=== PATIENT | female | born 1995 | race Hispanic/Latino ===

== ENCOUNTER 2019-11-14 13:18 | Emergency (ER) | payer SELFPAY ==
--- NOTE | 2019-11-14 13:19 | Event Note ---
ED Screening Note ED Screening Note: mis Jul 19 dizzy and weak never before preg hoshimotos disease rx mvi at night no c/e/d psh appy This initial assessment/diagnostic orders/clinical plan/treatment(s) is/are subject to change based on patients health status, clinical progression and re- assessment by fellow clinical providers in the ED. Further treatment and workup at subsequent clinical providers discretion. Patient/guardian urged not to elope from the ED as their condition may be serious if not clinically assessed and man aged. Initial orders include: ua labs
[2019-11-14 13:26] VITALS: BP 109/74
[2019-11-14 14:02] LABS: Bacteria,Urine 1+ /HPF (Negative); Bilirubin,Urine NEG (Negative); Blood,Urine NEG (Negative); Color,Urine Yellow (Yellow); Mucus,Urine FEW /HPF; Protein,Urine <15 mg/dL mg/dL (Negative); Urobilinogen,Urine < 2.0 mg/dL (<2.0)
[2019-11-14 14:27] LABS: Basophils % (Auto) 0.6 % (0.0-1.8); Eosinophils # (Auto) 0.2 K/mm3 (0.0-0.4); Eosinophils % (Auto) 2.6 % (0.0-4.3); Hematocrit 39.5 % (30.3-42.9); Hemoglobin 13.2 gm/dl (10.1-14.3); Lymphocytes # (Auto) 0.9 K/mm3 (1.2-5.4); Lymphocytes % (Auto) 13.6 % (13.4-35.0); Mean Corpuscular HGB Conc 34 % (30-34); Mean Corpuscular Volume 84 fl (79-97); Monocytes # (Auto) 0.5 K/mm3 (0.0-0.8); Monocytes % (Auto) 7.2 % (0.0-7.3); Platelet Count 218 K/mm3 (140-440); Red Blood Count 4.72 M/mm3 (3.65-5.03); Red Cell Distribution Width 14.7 % (13.2-15.2)
[2019-11-14 14:42] LABS: BUN/Creatinine Ratio 14; Blood Urea Nitrogen 7 mg/dL (7-17); Calcium 9.8 mg/dL (8.4-10.2); Hemolysis Index 8
[2019-11-14] MEDS ORDERED: SODIUM CHLORIDE 0.9% 1000 ML 1,000 ML IV ONE (16:12)
[2019-11-14] MEDS ORDERED: ONDANSETRON 4 MG/2 ML INJ IV ONE (16:14)
--- NOTE | 2019-11-14 16:14 | Emergency Department Report ---
ED HPI - General Chief complaint: Syncope Stated complaint: PREG 7 WEEKS PASSING OUT Time Seen by Provider: 11/14/19 13:19 Source: patient Mode of arrival: Ambulatory Limitations: No Limitations - History of Present Illness Initial comments: 24 yo white female comes to er with dizziness x 2 incidents over the past few days. no cp. no sob. no sinus pain. no fever or chills. no cough. no dysuria. no vag bleeding or dc. no back pain This AM she had gotten up, proceeded to make breakfast and she got dizzy. She laid down and then family brought her to ER. Pt is 7w . Has not seen obgyn yet She could not get appnt until December [id number] miscarriage in 08/07 Pt ambulatory to ER without dizziness no tachycardia; no hypotension; no fever Associated symptoms: denies other symptoms. denies: nausea/vomiting, vaginal bleeding, vaginal discharge, abdominal pain, dysuria, headache, vision changes, malaise, dysparuenia, rash, seizure, shortness of breath, syncope, weakness Vaginal bleeding: none :: Yes OB History - Current : other (ab in 08/07) Pre-aubrey care: other (appnt in December) - Related Data Previous Rx's Medication Instructions Recorded Last Taken Type Ondansetron [Zofran Odt] 4 mg PO Q8HR PRN #10 tab.rapdis 11/14/19 Unknown Rx ED Review of Systems ROS: Stated complaint: PREG 7 WEEKS PASSING OUT Other details as noted in HPI Comment: All other systems reviewed and negative ED Past Medical Hx - Past Medical History Previous Medical History?: Yes Additional medical history: Hashimotos - Surgical History Past Surgical History?: Yes Hx Appendectomy: Yes - Family History Family history: no significant - Social History Smoking Status: Never Smoker Substance Use Type: None - Medications Home Medications: Home Medications Medication Instructions Recorded Confirmed Last Taken Type Ondansetron [Zofran Odt] 4 mg PO Q8HR PRN #10 tab.rapdis 11/14/19 Unknown Rx ED Physical Exam - General Limitations: No Limitations General appearance: alert, in no apparent distress - Head Head exam: Present: atraumatic, normocephalic - Eye Eye exam: Present: normal appearance - ENT ENT exam: Present: mucous membranes moist - Neck Neck exam: Present: normal inspection - Respiratory Respiratory exam: Present: normal lung sounds bilaterally. Absent: respiratory distress - Cardiovascular Cardiovascular Exam: Present: regular rate, normal rhythm. Absent: systolic murmur, diastolic murmur, rubs, gallop - GI/Abdominal GI/Abdominal exam: Present: soft, normal bowel sounds - Extremities Exam Extremities exam: Present: normal inspection - Back Exam Back exam: Present: normal inspection - Neurological Exam Neurological exam: Present: alert, oriented X3 - Psychiatric Psychiatric exam: Present: normal affect, normal mood - Skin Skin exam: Present: warm, dry, intact, normal color. Absent: rash ED Course Vital Signs 11/14/19 13:21 Temperature 98.2 F Pulse Rate 91 H Respiratory 18 Rate Blood Pressure 109/74 O2 Sat by Pulse 100 Oximetry ED Medical Decision Making - Lab Data Result diagrams: 11/14/19 13:43 11/14/19 13:43 - Medical Decision Making Lab Results 11/14/19 11/14/19 11/14/19 Range/Units 13:43 13:43 13:43 WBC 6.8 (4.5-11.0) K/mm3 RBC 4.72 (3.65-5.03) M/mm3 Hgb 13.2 (10.1-14.3) gm/dl Hct 39.5 (30.3-42.9) % MCV 84 (79-97) fl MCH 28 (28-32) pg MCHC 34 (30-34) % RDW 14.7 (13.2-15.2) % Plt Count 218 (140-440) K/mm3 Lymph % (Auto) 13.6 (13.4-35.0) % Stanley % (Auto) 7.2 (0.0-7.3) % Eos % (Auto) 2.6 (0.0-4.3) % Baso % (Auto) 0.6 (0.0-1.8) % Lymph # 0.9 L (1.2-5.4) K/mm3 Stanley # 0.5 (0.0-0.8) K/mm3 Eos # 0.2 (0.0-0.4) K/mm3 Baso # 0.0 (0.0-0.1) K/mm3 Seg Neutrophils % 76.0 H (40.0-70.0) % Seg Neutrophils # 5.2 (1.8-7.7) K/mm3 Sodium 136 L (137-145) mmol/L Potassium 4.4 (3.6-5.0) mmol/L Chloride 101.2 (98-107) mmol/L Carbon Dioxide 25 (22-30) mmol/L Anion Gap 14 mmol/L BUN 7 (7-17) mg/dL Creatinine 0.5 L (0.7-1.2) mg/dL Estimated GFR > 60 ml/min BUN/Creatinine Ratio 14 % Glucose 80 (65-100) mg/dL POC Glucose (70-105) Calcium 9.8 (8.4-10.2) mg/dL TSH (0.270-4.200) mlU/mL HCG, Quant 74105 H (0-4) mIU/mL Urine Color (Yellow) Urine Turbidity (Clear) Urine pH (5.0-7.0) Ur Specific [place] (1.003-1.030) Urine Protein (Negative) mg/dL Urine Glucose (UA) (Negative) mg/dL Urine Ketones (Negative) mg/dL Urine Blood (Negative) Urine Nitrite (Negative) Urine Bilirubin (Negative) Urine Urobilinogen (<2.0) mg/dL Ur Leukocyte Esterase (Negative) Urine WBC (Auto) (0.0-6.0) /HPF Urine RBC (Auto) (0.0-6.0) /HPF U Epithel Cells (Auto) (0-13.0) /HPF Urine Bacteria (Auto) (Negative) /HPF Urine Mucus /HPF 11/14/19 11/14/19 11/14/19 Range/Units 13:43 13:44 15:44 WBC (4.5-11.0) K/mm3 RBC (3.65-5.03) M/mm3 Hgb (10.1-14.3) gm/dl Hct (30.3-42.9) % MCV (79-97) fl MCH (28-32) pg MCHC (30-34) % RDW (13.2-15.2) % Plt Count (140-440) K/mm3 Lymph % (Auto) (13.4-35.0) % Stanley % (Auto) (0.0-7.3) % Eos % (Auto) (0.0-4.3) % Baso % (Auto) (0.0-1.8) % Lymph # (1.2-5.4) K/mm3 Stanley # (0.0-0.8) K/mm3 Eos # (0.0-0.4) K/mm3 Baso # (0.0-0.1) K/mm3 Seg Neutrophils % (40.0-70.0) % Seg Neutrophils # (1.8-7.7) K/mm3 Sodium (137-145) mmol/L Potassium (3.6-5.0) mmol/L Chloride (98-107) mmol/L Carbon Dioxide (22-30) mmol/L Anion Gap mmol/L BUN (7-17) mg/dL Creatinine (0.7-1.2) mg/dL Estimated GFR ml/min BUN/Creatinine Ratio % Glucose (65-100) mg/dL POC Glucose 92 (70-105) Calcium (8.4-10.2) mg/dL TSH 2.830 (0.270-4.200) mlU/mL HCG, Quant (0-4) mIU/mL Urine Color Yellow (Yellow) Urine Turbidity Clear (Clear) Urine pH 5.0 (5.0-7.0) Ur Specific [place] 1.012 (1.003-1.030) Urine Protein <15 mg/dl (Negative) mg/dL Urine Glucose (UA) Neg (Negative) mg/dL Urine Ketones Neg (Negative) mg/dL Urine Blood Neg (Negative) Urine Nitrite Neg (Negative) Urine Bilirubin Neg (Negative) Urine Urobilinogen < 2.0 (<2.0) mg/dL Ur Leukocyte Esterase Tr (Negative) Urine WBC (Auto) 1.0 (0.0-6.0) /HPF Urine RBC (Auto) 3.0 (0.0-6.0) /HPF U Epithel Cells (Auto) 2.0 (0-13.0) /HPF Urine Bacteria (Auto) 1+ (Negative) /HPF Urine Mucus Few /HPF Vital Signs 11/14/19 13:21 Temperature 98.2 F Pulse Rate 91 H Respiratory 18 Rate Blood Pressure 109/74 O2 Sat by Pulse 100 Oximetry bg noted only 80 on labs- this is after dizziness at home, and coming to ER with no PO intake I'm concerned she was hypoglycemic when she developed symptoms labs noted hgb stable cr normal lytes normal tsh normal 12 lead nap taking po in er no dizziness in er ambulatory without difficulty in ER no nystagmus no vertigo on exam neuro intact medicated with zofran/NS in ER pt updated on all findings today and will dc home with dc poc and obgyn follow up. she has been monitored several hours in the er with no further symptoms. - Differential Diagnosis ro anemia/uti/thyroid disease/arrhythmia/hypoglycemia Critical care attestation.: If time is entered above; I have spent that time in minutes in the direct care of this critically ill patient, excluding procedure time. ED Disposition Clinical Impression: , Dizziness Disposition: DC-01 TO HOME OR SELFCARE Is pt being admited?: No Does the pt Need Aspirin: No Condition: Stable Additional Instructions: stay well hydrated eat small meals every 2 hours when you get dizzy stop and eat daily multivitamin zofran for nausea tylenol for pain follow up with obgy -- take this paperwork with you follow up with pcp referral below Prescriptions: Ondansetron [Zofran Odt] 4 mg PO Q8HR PRN #10 tab.rapdis PRN Reason: Vomiting Referrals: JS VERDE MD [Staff Physician] - 3-5 Days SUHAIL NOYOLA MD [Staff Physician] - 3-5 Days Time of Disposition: 16:11
== END 2019-11-14 18:47 | disposition home or self-care (01) ==
LOC: ED 13:18
DX: O26.891 Other specified pregnancy related conditions, first trimester (principal); R42 Dizziness and giddiness; E06.3 Autoimmune thyroiditis; Z3A.01 Less than 8 weeks gestation of pregnancy; Z90.49 Acquired absence of other specified parts of digestive tract; Z79.899 Other long term (current) drug therapy
CPT/HCPCS: 36415; 80048; 81001; 82962; 84443; 84702; 85025; 93005; 96361; 96374; 99284; J2405; J7030

== ENCOUNTER 2020-02-13 16:59 | Outpatient (CLI) | payer OTHER ==
[2020-02-13] MEDS ORDERED: LACTATED RINGERS 500 ML IV ONE (18:30)
[2020-02-13 18:59] LABS: Hemoglobin 11.9 gm/dl (10.1-14.3); Mean Corpuscular HGB Conc 33 % (30-34); Mean Corpuscular Volume 87 fl (79-97); Platelet Count 210 K/mm3 (140-440); Red Blood Count 4.16 M/mm3 (3.65-5.03); Red Cell Distribution Width 14.2 % (13.2-15.2)
[2020-02-13] MEDS ORDERED: fentaNYL 100 MCG/2 ML INJ IV ONE (19:00)
[2020-02-13 19:29] LABS: Bacteria,Urine 1+ /HPF (Negative); Bilirubin,Urine NEG (Negative); Blood,Urine SM (Negative); Color,Urine Straw (Yellow); Protein,Urine <15 mg/dL mg/dL (Negative); Urobilinogen,Urine < 2.0 mg/dL (<2.0)
[2020-02-13] MEDS ORDERED: CYCLOBENZAPRINE 10 MG TAB PO PRN (22:31)
[2020-02-13] MEDS ORDERED: fentaNYL 100 MCG/2 ML INJ IV PRN (22:32)
[2020-02-13] MEDS ORDERED: ONDANSETRON 4 MG/2 ML INJ IV PRN (22:39)
--- NOTE | 2020-02-13 22:42 | Ultrasound Report ---
ULTRASOUND RENAL RIGHT INDICATION: PT REPORTS RIGHT FLANK PAIN THAT COMES AND GOES. COMPARISON: No relevant prior imaging study available. FINDINGS: RIGHT KIDNEY: Size: 12.4 cm. Echogenicity: Normal. Cortical thickness: Mild thinning, 1.3 cm. Hydronephrosis: None. Cyst or mass: None. Stones: None. Urinary Bladder: Not seen. Free Fluid: None. Additional Findings: None. IMPRESSION 1. No acute sonographic abnormality of the right kidney. Signer Name: Brendon Knox MD Signed: 02/13/2020 10:37 PM Workstation Name: [id number]
[2020-02-13] MEDS ORDERED: NITROFURANTOIN MONOHYD/M-CRYST 100 MG CAP PO SCH (23:00)
[2020-02-13] MEDS: LACTATED RINGERS 1,000 ML IV SCH (23:30)
[2020-02-14] MEDS: LACTATED RINGERS 1,000 ML IV SCH (06:57)
[2020-02-14 09:12] VITALS: BP 86/49
[2020-02-14] MEDS ORDERED: NITROFURANTOIN MONOHYD/M-CRYST 100 MG CAP ONE (10:00)
== END 2020-02-14 10:30 | disposition home or self-care (01) ==
LOC: TRG 16:59 → APU 17:00 → TRG 20:42 → APU 20:42 → TRG 02-14 10:30 → LD 02-14 11:03
PROVIDERS: ATTEND Obstetrics & Gynecology
DX: O26.892 Other specified pregnancy related conditions, second trimester (principal); M54.5 Low back pain; R10.9 Unspecified abdominal pain; O47.02 False labor before 37 completed weeks of gestation, second trimester; Z3A.20 20 weeks gestation of pregnancy
CPT/HCPCS: 36415; 59025; 76775; 81001; 82565; 85027; 96360; 96361; 96365; 96367; J3010; J7120; 96374

== ENCOUNTER 2020-06-30 21:11 | Outpatient (CLI) | payer OTHER ==
[2020-06-30 22:35] LABS: Hematocrit 26.8 % (30.3-42.9); Hemoglobin 8.4 gm/dl (10.1-14.3); Mean Corpuscular HGB Conc 31 % (30-34); Mean Corpuscular Volume 70 fl (79-97); Platelet Count 183 K/mm3 (140-440); Red Blood Count 3.83 M/mm3 (3.65-5.03); Red Cell Distribution Width 16.8 % (13.2-15.2)
[2020-06-30 22:44] LABS: Bacteria,Urine 3+ /HPF (Negative); Bilirubin,Urine NEG (Negative); Blood,Urine SM (Negative); Color,Urine Straw (Yellow); Protein,Urine <15 mg/dL mg/dL (Negative); Urobilinogen,Urine < 2.0 mg/dL (<2.0)
[2020-06-30 22:52] LABS: Alanine Aminotransferase 15 units/L (7-56); Uric Acid 3.9 mg/dL (3.5-7.6)
[2020-06-30 23:21] VITALS: BP 116/70
[2020-06-30] MEDS ORDERED: hydrOXYzine PAMOATE 25 MG CAP PO ONE (23:45)
== END 2020-06-30 23:54 | disposition home or self-care (01) ==
LOC: TRG 21:11 → APU 21:19 → TRG 23:54
PROVIDERS: ATTEND Obstetrics & Gynecology
DX: O47.1 False labor at or after 37 completed weeks of gestation (principal); Z3A.39 39 weeks gestation of pregnancy
CPT/HCPCS: 36415; 59025; 81001; 82565; 83615; 84450; 84460; 84550; 85027; 87086; Q0177

== ENCOUNTER 2020-07-06 03:03 | Inpatient (IN) | payer OTHER ==
[2020-07-06] MEDS ORDERED: ePHEDrine SULFATE 50 MG/1 ML INJ IV PRN ×2 (04:47→06:35)
[2020-07-06] MEDS ORDERED: miSOPROStol 200 MCG TAB PR PRN (04:47)
[2020-07-06] MEDS ORDERED: BUTORPHANOL 2 MG/1 ML INJ IV PRN ×2 (04:47)
[2020-07-06] MEDS ORDERED: NALOXONE 0.4 MG/1 ML INJ IV PRN (04:47)
[2020-07-06] MEDS ORDERED: ONDANSETRON 4 MG/2 ML INJ IV PRN ×2 (04:47→21:31)
[2020-07-06] MEDS ORDERED: METHYLERGONOVINE MALEATE 0.2 MG/ML VIAL IM PRN (04:47)
[2020-07-06] MEDS ORDERED: LIDOCAINE (2%) 20 MG/1 ML VIAL 20 ML MDV INFILTRATI ONE (04:47)
[2020-07-06] MEDS ORDERED: OXYTOCIN 10 UNIT/1 ML INJ IM PRN (04:47)
[2020-07-06] MEDS ORDERED: TERBUTALINE 1 MG/1 ML INJ SUB-Q PRN (04:47)
[2020-07-06] MEDS ORDERED: CARBOPROST TROMETHAMINE 250 MCG/1 ML INJ IM PRN (04:47)
[2020-07-06] MEDS ORDERED: MINERAL OIL 30 ML ORAL LIQD PO PRN (04:47)
[2020-07-06] MEDS ORDERED: OXYTOCIN DRIP 30 UNITS/500 ML BAG IV SCH (05:00)
[2020-07-06] MEDS: LACTATED RINGERS 1,000 ML IV SCH ×3 (05:15→07:15)
[2020-07-06] MEDS: fentaNYL 100 MCG/2 ML INJ IV PRN ×2 (05:15→17:30)
[2020-07-06] MEDS ORDERED: fentaNYL-BUPIV 2 MCG/ML-0.125% 200 MCG/100 ML BAG EPIDURAL ONE (06:00)
[2020-07-06] MEDS ORDERED: NALOXONE 2 MG/2 ML INJ IV PRN (06:35)
--- NOTE | 2020-07-06 06:35 | Anesthesia Consultation ---
Anesthesia Consult and Med Hx Date of service: 07/06/20 - Airway Anesthetic Teeth Evaluation: Good ROM Head & Neck: Adequate Mental/Hyoid Distance: Adequate Mallampati Class: Class II Intubation Access Assessment: Probably Good - Pulmonary Exam CTA: Yes - Cardiac Exam Cardiac Exam: RRR - Pre-Operative Health Status ASA Pre-Surgery Classification: ASA2 Proposed Anesthetic Plan: Epidural - Pulmonary Hx Asthma: No - Cardiovascular System Hx Hypertension: No - Central Nervous System Hx Seizures: No Hx Psychiatric Problems: No - Endocrine Hx Renal Disease: No Hx Hypothyroidism: No Hx Hyperthyroidism: No - Hematic Hx Anemia: No Hx Sickle Cell Disease: No - Other Systems Hx Alcohol Use: No
[2020-07-06 08:06] LABS: Hemoglobin 7.9 gm/dl (10.1-14.3); Mean Corpuscular HGB Conc 32 % (30-34); Mean Corpuscular Volume 70 fl (79-97); Platelet Count 187 K/mm3 (140-440); Red Blood Count 3.55 M/mm3 (3.65-5.03); Red Cell Distribution Width 16.9 % (13.2-15.2)
--- NOTE | 2020-07-06 09:48 | Progress Note ---
Labor Epidural - Labor Epidural Start Time: 09:15 Stop Time: 09:20 Performed by:: SALONI VALENTINE Procedure: Patient is requesting epidural for labor pain. H&P, and labs reviewed. Procedure explained, questions answered, consent obtained. Patient in sitting position with blood pressure cuff and pulse ox on and working. Timeout performed immediately before start of procedure. Sterile betadine prep/drape. 3 mL 1% lidocaine skin wheal at L[3]-L[4]. 18-gauge [place] epidural needle advanced to [id number] with saline at [7] cm. Epidural dexmedetomidine [30] mcg administered. Epidural catheter advanced to [12] cm, negative aspiration for blood and csf, negative test dose 3 ml 1.5% lidocaine with epinephrine. Sterile steri-strips and tegaderm applied, followed by tape reinforcement. Patient tolerated procedure well.
[2020-07-06] MEDS: fentaNYL-BUPIV 2 MCG/ML-0.125% 200 MCG/100 ML BAG EPIDURAL SCH ×2 (09:49→16:57)
--- NOTE | 2020-07-06 11:51 | History and Physical Report ---
History of Present Illness Date of examination: 07/06/20 Date of admission: 07/06/20 04:47 Chief complaint: My water broke History of present illness: pt is a 25 year old who presents at 40.5 weeks with spontaneous rupture of membranes and contractions. She has had an uncomplicated course. She is GBS negative Past History Past Medical History: no pertinent history Past Surgical History: no surgical history Social history: - Obstetrical History Expected Date of Delivery: 07/01/20 Actual Gestation: 40 Week(s) 5 Day(s) : 2 Para: 0 Number of Living Children: 0 Medications and Allergies Allergies Allergy/AdvReac Type Severity Reaction Status Date / Time No Known Allergies Allergy Verified 02/16/20 11:19 Home Medications Medication Instructions Recorded Confirmed Last Taken Type Vit-Fe Fumar-FA [ 1 tab PO DAILY 07/06/20 07/06/20 07/06/20 History Vitamin] Active Meds: Active Medications Butorphanol Tartrate (Butorphanol 2 Mg/1 Ml Inj) 2 mg IV Q2H PRN PRN Reason: Pain , Severe (7-10) Butorphanol Tartrate (Butorphanol 2 Mg/1 Ml Inj) 1 mg IV Q2H PRN PRN Reason: Pain, Moderate(4-6) LABOR PAIN Last Admin: 07/06/20 08:00 Dose: 1 mg Documented by: Carboprost Tromethamine (Carboprost Tromethamine 250 Mcg/1 Ml Inj) 250 mcg IM ONCE PRN PRN Reason: Uterine Bleeding Ephedrine Sulfate (Ephedrine Sulfate 50 Mg/1 Ml Inj) 10 mg IV Q2M PRN PRN Reason: Hypotension Last Admin: 07/06/20 09:49 Dose: 10 mg Documented by: Fentanyl (Fentanyl 100 Mcg/2 Ml Inj) 100 mcg IV Q2H PRN PRN Reason: Pain,Severe (7-10) LABOR PAIN Last Admin: 07/06/20 05:15 Dose: 100 mcg Documented by: Lactated Ringer's (Lactated Ringers) 1,000 mls @ 125 mls/hr IV DIRECT ZARINA Last Admin: 07/06/20 07:15 Dose: 125 mls/hr Documented by: Oxytocin/Sodium Chloride (Pitocin/Ns 30 Unit/500ml) 30 units in 500 mls @ 40 mls/hr IV TITR ZARINA; Protocol Last Titration: 07/06/20 11:39 Dose: 6 ml/hr, 6 mls/hr Documented by: Fentanyl/Bupivacaine/Sodium Chlor (Fentanyl-Bupiv 2 Mcg/Ml-0.125%) 200 mcg in 100 mls @ 12 mls/hr EPIDURAL TITR [facility]; Protocol Last Admin: 07/06/20 09:49 Dose: 12 mls/hr Documented by: Methylergonovine Maleate (Methylergonovine Maleate 0.2 Mg/Ml Vial) 0.2 mg IM ONCE PRN PRN Reason: Uterine Bleeding Mineral Oil (Mineral Oil 30 Ml Oral Liqd) 30 ml PO QHS PRN PRN Reason: Constipation Misoprostol (Misoprostol 200 Mcg Tab) 800 mcg TN ONCE PRN PRN Reason: Uterine Bleeding Naloxone HCl (Naloxone 2 Mg/2 Ml Inj) 0.2 mg IV Q5M PRN PRN Reason: Respiratory sedation Ondansetron HCl (Ondansetron 4 Mg/2 Ml Inj) 4 mg IV Q8H PRN PRN Reason: Nausea And Vomiting Oxytocin (Oxytocin 10 Unit/1 Ml Inj) 10 unit IM ONCE PRN PRN Reason: Uterine Bleeding Terbutaline Sulfate (Terbutaline 1 Mg/1 Ml Inj) 0.25 mg SUB-Q ONCE PRN PRN Reason: Hyperstimulation/Hypertonicity Review of Systems All systems: negative Constitutional: fatigue Ears, nose, mouth and throat: deferred Breasts: deferred Genitourinary: leakage of fluid, contractions - Vital Signs Vital signs: Vital Signs Pulse BP 92 H 126/83 07/06/20 04:10 07/06/20 04:10 Temp Pulse Resp BP Pulse Ox 98.3 F 99 H 18 117/82 99 07/06/20 11:18 07/06/20 11:44 07/06/20 11:18 07/06/20 11:28 07/06/20 11:44 - Physical Exam Breasts: Cardiovascular: Regular rate, Normal S1, Normal S2 Lungs: Positive: Clear to auscultation, Normal air movement Abdomen: Positive: normal appearance, soft, normal bowel sounds. Negative: distention, tenderness Genitourinary (Female): Positive: normal external genitalia, normal perenium Vulva: both: normal Vagina: Positive: normal moisture. Negative: discharge Cervix: Negative: lesion, discharge Uterus: Positive: normal size, normal contour Adnexa: both: normal Anus/Rectum: Positive: normal perianal skin, heme negative. Negative: rectal mass, hemorrhoids Extremities: Deep Tendon Reflex Grade: Normal +2 - Obstetrical FHR: auscultation normal Uterine Contraction Monitor Mode: Palpation Cervical Dilatation: 4 Cervical Effacement Percentage: 90 station: -1 Uterine Contraction Pattern: Regular Uterine Tone Measurement Phase: Contraction Uterine Contraction Intensity: Moderate Results Result Diagrams: 07/06/20 04:29 Abnormal lab results 07/06/20 Range/Units 04:29 RBC 3.55 L (3.65-5.03) M/mm3 Hgb 7.9 L (10.1-14.3) gm/dl Hct 25.0 L (30.3-42.9) % MCV 70 L (79-97) fl MCH 22 L (28-32) pg RDW 16.9 H (13.2-15.2) % All other labs normal. Assessment and Plan IUP at 40.5 with rom in active labor. Admit for L&D. Begin pitocin. Pt may have epidural when ready. Anticipate .
--- NOTE | 2020-07-06 18:59 | Procedure Note ---
OB Delivery Note - Delivery Date of Delivery: 07/06/20 Surgeon: JS VERDE Estimated blood loss: 300cc - Vaginal Delivery presentation: vertex Delivery position: OA Intrapartum events: none Delivery induction: none Delivery augmentation: pitocin Delivery monitor: external FHT, external uterine Route of delivery: Delivery placenta: spontaneous Delivery cord: 3 umbilical vessels Episiotomy: midline Delivery laceration: 2nd degree Delivery repair: vicryl Anesthesia: epidural Delivery comments: Viable male delivered over intact perineum was initially occiput posterior with and rotated toward the end of pushing for a normal vaginal delivery no nuchal cord was noted. Infant had spontaneous cry. He was placed on maternal abdomen and the cord was clamped and cut with pulsating his weight was 8 pounds 13 ounces 4044 g. And he was 21 inches long. The placenta was delivered spontaneously and intact with three-vessel cord the laceration was repaired with 2-0 Vicryl. There was excellent hemostasis. Patient tolerated procedure well - Infant A at 1 minute: 8 at 5 minutes: 9 Infant Gender: Male (4044g, 8 pounds 15 ounces)
[2020-07-06] MEDS ORDERED: HYDROcodone/ACETAMINOPHEN 5-325 MG TAB PO ONE (20:30)
[2020-07-06] MEDS ORDERED: MAGNESIUM HYDROXIDE (MOM) ORAL LIQD UDC PO PRN (21:31)
[2020-07-06] MEDS ORDERED: HYDROcodone/ACETAMINOPHEN 5-325 MG TAB PO PRN (21:31)
[2020-07-06] MEDS ORDERED: diphenhydrAMINE 25 MG CAP PO PRN (21:31)
[2020-07-06] MEDS ORDERED: WITCH HAZEL/ GLYCERIN PAD TP PRN (21:31)
[2020-07-06] MEDS ORDERED: PROMETHAZINE 25 MG RECT SUPP PR PRN (21:31)
[2020-07-06] MEDS ORDERED: LANOLIN/ZINC/DIMETHICONE (LANSINOH) 7 GM TP PRN (21:31)
[2020-07-06] MEDS ORDERED: PROMETHAZINE 25 MG TAB PO PRN (21:31)
[2020-07-06] MEDS: FERROUS SULFATE 325 MG TAB PO SCH (21:51)
[2020-07-07] MEDS: IBUPROFEN 600 MG TAB PO SCH ×2 (07:03→12:33)
[2020-07-07] MEDS ORDERED: BENZOCAINE/MENTHOL 20/0.5% TOP SPRAY 56 GM TP PRN (10:18)
[2020-07-07] MEDS: PRENATAL VIT27-FE FUMARATE-FOLIC ACID VIT TAB PO SCH (10:22)
[2020-07-07] MEDS: FERROUS SULFATE 325 MG TAB PO SCH (10:22)
--- NOTE | 2020-07-07 10:51 | Post Anesthesia Evaluation ---
- Post Anesthesia Evaluation Patient Participated: Yes Airway Patent: Yes Stable Respiratory Function: Yes Nausea/Vomiting: No Temp > 96.8F: Yes Pain Manageable: Yes Adequeate Hydration: Yes Anesthesia Complications: No Block Receding Appropriately: Yes
[2020-07-07 19:23] LABS: Hematocrit 16.6 % (30.3-42.9); Hemoglobin 5.3 gm/dl (10.1-14.3)
[2020-07-07] MEDS ORDERED: SODIUM CHLORIDE 0.9% 500 ML 500 ML IV NR (20:38)
[2020-07-08] MEDS: IBUPROFEN 600 MG TAB PO SCH ×2 (00:58→15:23)
[2020-07-08] MEDS: FERROUS SULFATE 325 MG TAB PO SCH ×2 (00:58→09:56)
[2020-07-08] MEDS: PRENATAL VIT27-FE FUMARATE-FOLIC ACID VIT TAB PO SCH (09:56)
[2020-07-08 14:48] LABS: Hematocrit 20.4 % (30.3-42.9); Hemoglobin 6.8 gm/dl (10.1-14.3)
--- NOTE | 2020-07-08 15:15 | Progress Note ---
Subjective - Subjective Date of service: 07/08/20 Interval history: pt is a 25 year old who presents at 40.5 weeks with spontaneous rupture of membranes and contractions. She has had an uncomplicated course. She is GBS negative Objective - Vital Signs Latest vital signs: Vital Signs Temp Pulse Resp BP Pulse Ox 07/08/20 07:59 98.0 F 84 20 104/66 96 07/08/20 06:03 98.6 F 88 16 116/72 97 07/08/20 06:02 98.6 F 88 16 116/72 97 07/08/20 05:33 98.1 F 80 16 112/76 98 07/08/20 05:03 98.1 F 84 16 119/68 99 07/08/20 04:33 98.1 F 88 16 109/68 98 07/08/20 04:03 98.0 F 80 16 117/68 94 07/08/20 03:48 98.1 F 88 16 120/76 96 07/08/20 02:06 98.2 F 88 16 113/68 96 07/08/20 01:53 98.2 F 88 16 113/68 96 07/08/20 01:23 98.1 F 86 119/54 96 07/08/20 00:58 16 07/08/20 00:53 98.4 F 86 102/68 98 07/08/20 00:23 98.2 F 84 16 119/72 109 H 07/08/20 00:08 98.1 F 96 H 113/72 07/07/20 15:53 97.6 F 119 H 18 110/68 99 Intake and Output 07/08/20 07/08/20 07/08/20 06:59 14:59 22:59 Intake Total 500 480 Balance 500 480 Intake: Oral 480 Blood Product 500 Leukoreduced Red Blood 250 Cells Unit [id number] Leukoreduced Red Blood 250 Cells Unit [id number] Other: Total, Intake Amount 120 # Voids Void 1 - Labs Labs: Abnormal lab results 07/06/20 07/07/20 07/08/20 Range/Units 04:29 18:34 14:30 Hgb 5.3 L* 6.8 L (10.1-14.3) gm/dl Hct 16.6 L* D 20.4 L (30.3-42.9) % Crossmatch See Detail
--- NOTE | 2020-07-08 15:17 | Discharge Summary ---
Providers - Providers Date of Admission: 07/06/20 04:47 Date of discharge: 07/08/20 Attending physician: JS VERDE Primary care physician: JS VERDE Hospitalization Reason for admission: active labor, rupture of membranes Delivery: Episiotomy: none Laceration: 2nd degree Other procedures: none complications: none Discharge diagnosis: IUP at term delivered [place] baby: male Hospital course: Anemia requiring transfusion Condition at discharge: Good Disposition: DC-01 TO HOME OR SELFCARE Plan - Discharge Medications Prescriptions: Ferrous Sulfate [Feosol 325 MG tab] 325 mg PO BID #60 tablet Ibuprofen [Motrin] 800 mg PO Q8HR PRN #40 tablet PRN Reason: Pain, Mild (1-3) HYDROcodone/APAP 5-325 [[place] 5/325] 1 each PO Q6HR PRN #15 tablet PRN Reason: Pain - Provider Discharge Summary Activity: routine, no sex for 6 weeks, no heavy lifting 4 weeks, no strenuous exercise Diet: routine Instructions: routine Additional instructions: [] Smoking cessation referral if applicable(refer to patient education folder for contact #) [] Refer to [facility]'s [facility] Booklet Call your doctor immediately for: * Fever > 100.5 * Heavy vaginal bleeding ( >1 pad per hour) * Severe persistent headache * Shortness of breath * Reddened, hot, painful area to leg or breast * Drainage or odor from incision. * Keep incision clean and dry at all times and follow doctor's instructions regarding bathing/showering - Follow up plan Follow up: JS VERDE MD [Primary Care Provider] - 6 Weeks Forms: [facility] Discharge Summary
[2020-07-08 16:39] VITALS: BP 118/76
== END 2020-07-08 17:30 | disposition home or self-care (01) | DRG 807 ==
LOC: TRG 03:03 → APU 03:14 → LD 03:36 → TRG 04:47 → OB 21:30
PROVIDERS: ADMIT Obstetrics & Gynecology; ATTEND Obstetrics & Gynecology
PROC: 10E0XZZ Delivery of Products of Conception, External Approach (ICD-10-PCS; principal; 2020-07-06)
PROC: 0KQM0ZZ Repair Perineum Muscle, Open Approach (ICD-10-PCS; 2020-07-06)
PROC: 3E0R3BZ Introduction of Anesthetic Agent into Spinal Canal, Percutaneous Approach (ICD-10-PCS; 2020-07-06)
PROC: 00HU33Z Insertion of Infusion Device into Spinal Canal, Percutaneous Approach (ICD-10-PCS; 2020-07-06)
PROC: 30233N1 Transfusion of Nonautologous Red Blood Cells into Peripheral Vein, Percutaneous Approach (ICD-10-PCS; 2020-07-08)
DX: O48.0 Post-term pregnancy (principal); Z37.0 Single live birth; Z20.828 Contact with and (suspected) exposure to other viral communicable diseases; O99.02 Anemia complicating childbirth; D64.9 Anemia, unspecified; O70.1 Second degree perineal laceration during delivery; Z3A.40 40 weeks gestation of pregnancy
CPT/HCPCS: 36415; 85014; 85018; 85027; 86592; 86850; 86900; 86901; 86920; G0378; J0595; J2590; J3010; J7040; J7120; P9016; U0003